=== PATIENT | male | born 1985 | race Caucasian/White ===

== ENCOUNTER 2018-05-07 17:37 | Emergency (ER) | payer OTHER ==
[2018-05-07] MEDS ORDERED: Sodium Chloride 0.9% 1,000 ML IV ONE (17:56)
[2018-05-07] MEDS ORDERED: Ketorolac 30 MG/ML SDV IVPUSH ONE (17:56)
[2018-05-07] MEDS ORDERED: Tamsulosin 0.4 MG Cap.ER PO ONE (17:56)
[2018-05-07] MEDS ORDERED: Ondansetron 4 MG/2 ML SDV IVPUSH ONE (17:56)
[2018-05-07 18:41] LABS: CHLORIDE,CL 101 mmol/L (98-107); SODIUM,NA 136 mmol/L (136-148)
[2018-05-07] MEDS ORDERED: HYDROmorphone 1 MG/ML Syringe IVPUSH ONE (19:43)
--- NOTE | 2018-05-07 19:58 | EDM.PDOC ---
ED HPI GENERAL MEDICAL PROBLEM - General Chief Complaint: Flank Pain Stated Complaint: LEFT SIDE ABDOMINAL PAIN Time Seen by Provider: 05/07/18 17:54 - History of Present Illness INITIAL COMMENTS - FREE TEXT/NARRATIVE: HISTORY AND PHYSICAL: History of present illness: Patient 33-year-old white male with history of urolithiasis who is awaiting his urology follow-up presents with concern of left-sided flank pain similar to his recent diagnosis which she had multiple uroliths. He had no fever chills no vomiting no diarrhea no other complaints Review of systems: As per history of present illness and below otherwise all systems reviewed and negative. Past medical history: As per history of present illness and as reviewed below otherwise noncontributory. Surgical history: As per history of present illness and as reviewed below otherwise noncontributory. Social history: No reported history of drug or alcohol abuse. Family history: As per history of present illness and as reviewed below otherwise noncontributory. Physical exam: HEENT: Atraumatic, normocephalic, pupils reactive, negative for conjunctival pallor or scleral icterus, mucous membranes moist, throat clear, neck supple, nontender, trachea midline. Lungs: Clear to auscultation, breath sounds equal bilaterally, chest nontender. Heart: S1S2, regular, negative for clicks, rubs, or JVD. Abdomen: Soft, nondistended, nontender. Negative for masses or hepatosplenomegaly. Left-sided costovertebral tenderness. Pelvis: Stable nontender. Genitourinary: Deferred. Rectal: Deferred. Extremities: Atraumatic, negative for cords or calf pain. Neurovascular unremarkable. Neuro: Awake, alert, oriented. Cranial nerves II through XII unremarkable. Cerebellum unremarkable. Motor and sensory unremarkable throughout. Exam nonfocal. Diagnostics: CBC CMP UA urine culture and sensitivity CT abdomen and pelvis Therapeutics: Normal saline 1 L bolus and Toradol 30 mg IV Flomax 0.4 mg by mouth Dilaudid 1 mg IV Impression: #! left-sided urolithiasis Definitive disposition and diagnosis as appropriate pending reevaluation and review of above. left flank Pain Score (Numeric/FACES): 10 - Related Data Allergies Allergy/AdvReac Type Severity Reaction Status Date / Time Penicillins Allergy Rash Verified 05/07/18 17:50 Home Meds: Home Meds Dextroamphetamine/Amphetamine [Adderall 30 mg Tablet] 30 mg PO TID 05/07/18 [ History] lamoTRIgine [Lamictal] 100 mg PO BID 05/07/18 [History] Past Medical History Psychiatric History: Reports: Bipolar, Depression - Infectious Disease History Infectious Disease History: Reports: None - Past Surgical History Neurological Surgical History: Reports: Spinal Fusion, Other (See Below) Other Neurological Surgeries/Procedures: back surgery , foot surgery Social & Family History - Family History Family Medical History: Noncontributory - Tobacco Use Smoking Status *Q: Light Tobacco Smoker Years of Tobacco use: 20 Packs/Tins Daily: 1 - Recreational Drug Use Recreational Drug Use: No ED ROS GENERAL - Review of Systems Review Of Systems: ROS reveals no pertinent complaints other than HPI. ED EXAM, GENERAL - Physical Exam Exam: See Below (The dictation) Course - Vital Signs Last Recorded V/S: Last Vital Signs Temp 36.3 C 05/07/18 19:00 Pulse 91 05/07/18 19:00 Resp 18 05/07/18 19:00 BP 138/88 05/07/18 19:00 Pulse Ox 98 05/07/18 19:00 - Orders/Labs/Meds Orders: Active Orders 24 hr Category Date Time Status Abdomen Pelvis wo Cont [CT] Stat Exams 05/07/18 17:56 Taken CULTURE URINE [RM] Stat Lab 05/07/18 18:25 Received UA W/MICROSCOPIC [URIN] Stat Lab 05/07/18 18:25 Ordered Labs: Laboratory Tests 05/07/18 05/07/18 05/07/18 Range/Units 18:08 18:08 18:25 WBC 10.40 (4.0-11.0) K/uL RBC 4.98 (4.50-5.90) M/uL Hgb 15.4 (13.0-17.0) g/dL Hct 44.2 (38.0-50.0) % MCV 88.8 (80.0-98.0) fL MCH 30.9 (27.0-32.0) pg MCHC 34.8 (31.0-37.0) g/dL RDW Std Deviation 42.7 (28.0-62.0) fl RDW Coeff of Maci 13 (11.0-15.0) % Plt Count 265 (150-400) K/uL MPV 9.10 (7.40-12.00) fL Neut % (Auto) 67.3 (48.0-80.0) % Lymph % (Auto) 18.6 (16.0-40.0) % [place] % (Auto) 8.3 (0.0-15.0) % Eos % (Auto) 5.3 (0.0-7.0) % Baso % (Auto) 0.5 (0.0-1.5) % Neut # (Auto) 7.0 H (1.4-5.7) K/uL Lymph # (Auto) 1.9 (0.6-2.4) K/uL [place] # (Auto) 0.9 H (0.0-0.8) K/uL Eos # (Auto) 0.6 (0.0-0.7) K/uL Baso # (Auto) 0.1 (0.0-0.1) K/uL Nucleated RBC % 0.0 /100WBC Nucleated RBCs # 0 K/uL Sodium 136 (136-148) mmol/L Potassium 3.9 (3.5-5.1) mmol/L Chloride 101 (98-107) mmol/L Carbon Dioxide 27.1 (21.0-32.0) mmol/L BUN 23 H (7.0-18.0) mg/dL Creatinine 1.2 (0.8-1.3) mg/dL Est Cr Clr Drug Dosing 81.09 mL/min Estimated GFR (MDRD) > 60.0 ml/min Glucose 102 (74-106) mg/dL Calcium 9.2 (8.5-10.1) mg/dL Total Bilirubin 0.6 (0.2-1.0) mg/dL AST 24 (15-37) IU/L ALT 52 (14-63) IU/L Alkaline Phosphatase 98 (46-116) U/L Total Protein 6.9 (6.4-8.2) g/dL Albumin 4.1 (3.4-5.0) g/dL Globulin 2.8 (2.0-3.5) g/dL Albumin/Globulin Ratio 1.5 (1.3-2.8) Urine Color YELLOW Urine Appearance CLEAR Urine pH 6.0 (5.0-8.0) Ur Specific [place] 1.010 (1.001-1.035) Urine Protein NEGATIVE (NEGATIVE) mg/dL Urine Glucose (UA) NEGATIVE (NEGATIVE) mg/dL Urine Ketones NEGATIVE (NEGATIVE) mg/dL Urine Occult Blood MODERATE (NEGATIVE) Urine Nitrite NEGATIVE (NEGATIVE) Urine Bilirubin NEGATIVE (NEGATIVE) Urine Urobilinogen 0.2 (<2.0) EU/dL Ur Leukocyte Esterase NEGATIVE (NEGATIVE) Urine RBC 0-1 (0-2/HPF) Urine WBC 0-1 (0-5/HPF) Ur Epithelial Cells RARE (NONE-FEW) Urine Bacteria RARE (NEGATIVE) Meds: Medications Discontinued Medications Generic Name Dose Route Start Last Admin Trade Name Freq PRN Reason Stop Dose Admin Hydromorphone HCl 1 mg 05/07/18 19:43 05/07/18 19:47 Dilaudid IVPUSH 05/07/18 19:44 1 mg ONETIME ONE Administration Sodium Chloride 1,000 mls @ 999 mls/hr 05/07/18 17:56 05/07/18 18:10 Normal Saline IV 05/07/18 18:56 999 mls/hr STAT ONE Administration Ketorolac Tromethamine 30 mg 05/07/18 17:56 05/07/18 18:11 Toradol IVPUSH 05/07/18 17:57 30 mg ONETIME ONE Administration Ondansetron HCl 4 mg 05/07/18 17:56 05/07/18 18:11 Zofran IVPUSH 05/07/18 17:57 4 mg ONETIME ONE Administration Tamsulosin HCl 0.4 mg 05/07/18 17:56 05/07/18 18:11 Flomax PO 05/07/18 17:57 0.4 mg ONETIME ONE Administration Departure - Departure Time of Disposition: 19:56 Disposition: Home, Self-Care 01 Condition: Good Clinical Impression: Urolithiasis - Discharge Information Referrals: PCP,None [Primary Care Provider] - Additional Instructions: The following information is given to patients seen in the emergency department who are being discharged to home. This information is to outline your options for follow-up care. We provide all patients seen in our emergency department with a follow-up referral. The need for follow-up, as well as the timing and circumstances, are variable depending upon the specifics of your emergency department visit. If you don't have a primary care physician on staff, we will provide you with a referral. We always advise you to contact your personal physician following an emergency department visit to inform them of the circumstance of the visit and for follow-up with them and/or the need for any referrals to a consulting specialist. The emergency department will also refer you to a specialist when appropriate. This referral assures that you have the opportunity for followup care with a specialist. All of these measure are taken in an effort to provide you with optimal care, which includes your followup. Under all circumstances we always encourage you to contact your private physician who remains a resource for coordinating your care. When calling for followup care, please make the office aware that this follow-up is from your recent emergency room visit. If for any reason you are refused follow-up, please contact the [facility] emergency department at and asked to speak to the emergency department charge nurse. Specialty Care - Urology [address] [place] [id number] Hydrocodone Flomax as prescribed follow-up urology as discussed return as needed as discussed - My Orders Last 24 Hours: My Active Orders 05/07/18 17:56 Abdomen Pelvis wo Cont [CT] Stat 05/07/18 18:25 CULTURE URINE [RM] Stat UA W/MICROSCOPIC [URIN] Stat - Assessment/Plan Last 24 Hours: My Active Orders 05/07/18 17:56 Abdomen Pelvis wo Cont [CT] Stat 05/07/18 18:25 CULTURE URINE [RM] Stat UA W/MICROSCOPIC [URIN] Stat
--- NOTE | 2018-05-08 09:21 | CT ---
EXAM DATE: 05/07/18 PATIENT'S AGE: 33 Patient: MYLES RAY Facility: [place], [place] Site . Site : 1985 Study: CT Abdomen/Pelvis [id number] 6:57:07 PM Ordering Physician: Doctor Galarza Final Report: INDICATION: Left flank pain. History of nephrolithiasis. TECHNIQUE: CT abdomen and pelvis without contrast. COMPARISON: None. FINDINGS: Lower chest: Unremarkable. Liver: Normal in size and attenuation. No masses. Gallbladder and bile ducts: No stones or inflammation. No biliary dilatation. Pancreas: Unremarkable. No mass or inflammation. Spleen: Normal in size. No masses. Adrenal glands: Normal in size. No nodules. Kidneys: There is a 3 mm stone in the mid left ureter causing moderate hydronephrosis. A 2nd tiny stone is in the lower pole of the left kidney. Bilateral parapelvic cysts are suspected. GI tract: Unremarkable. Normal in caliber. No sign of mass or inflammation. Normal appendix. Vasculature: Unremarkable. Lymph nodes: No lymphadenopathy. Abdominal wall/Omentum/Peritoneum: Unremarkable. No sign of mass or infiltration. No free air or significant free fluid. Pelvis: Unremarkable. No pelvic masses. Bones: There is posterior hardware fusion at L4-5. Otherwise unremarkable. IMPRESSION: 3 mm stone in the mid left ureter is causing moderate hydronephrosis. A 2nd tiny stone remains in the left kidney. No other significant finding. Please note that all CT scans at this facility use dose modulation, iterative reconstruction, and/or weight-based dosing when appropriate to reduce radiation dose to as low as reasonably achievable. Dictated by John Shin MD @ May 07 2018 7:22PM (Electronic Signature) Report Signed by Proxy. [facility]ONX HOSPITALManuel
== END 2018-05-07 20:18 | disposition home or self-care (01) ==
LOC: MW.ED 17:37
DX: N20.9 Urinary calculus, unspecified (principal); F32.9 Major depressive disorder, single episode, unspecified; F17.210 Nicotine dependence, cigarettes, uncomplicated; Z88.0 Allergy status to penicillin; Z79.899 Other long term (current) drug therapy
CPT/HCPCS: 36415; 74176; 80053; 81001; 85025; 87086; 96361; 96374; 96375; 99284; A9270; J1170; J1885; J2405; J7040

== ENCOUNTER 2019-01-19 16:41 | Emergency (ER) | payer OTHER ==
[2019-01-19] MEDS ORDERED: Albuterol/Ipratropium 3.0-0.5 MG/3 ML Neb Soln NEB ONE (17:09)
[2019-01-19] MEDS ORDERED: methylPREDNISolone Sodium Succinate 125 MG/2 ML SDV IM ONE (17:51)
--- NOTE | 2019-01-19 17:52 | EDM.PDOC ---
ED HPI GENERAL MEDICAL PROBLEM - General Chief Complaint: ENT Problem Stated Complaint: COUCHING UP BLOOD Time Seen by Provider: 01/19/19 17:51 Source of Information: Reports: Patient - History of Present Illness INITIAL COMMENTS - FREE TEXT/NARRATIVE: HISTORY AND PHYSICAL: History of present illness: [Patient presents with cough for a week increasing in severity coughing to lightheaded see spots nearly vomits has pain shortness breath headache dizziness palpitation no bowel or urine symptoms patient is concerned about some blood-tinged sputum is brought up with severe coughing today ] Review of systems: As per history of present illness and below otherwise all systems reviewed and negative. Past medical history: As per history of present illness and as reviewed below otherwise noncontributory. Surgical history: As per history of present illness and as reviewed below otherwise noncontributory. Social history: No reported history of drug or alcohol abuse. Family history: As per history of present illness and as reviewed below otherwise noncontributory. Physical exam: HEENT: Atraumatic, normocephalic, pupils reactive, negative for conjunctival pallor or scleral icterus, mucous membranes moist, throat clear, neck supple, nontender, trachea midline. Lungs: Clear to auscultation, breath sounds equal bilaterally, chest nontender. Heart: S1S2, regular, negative for clicks, rubs, or JVD. Abdomen: Soft, nondistended, nontender. Negative for masses or hepatosplenomegaly. Negative for costovertebral tenderness. Pelvis: Stable nontender. Genitourinary: Deferred. Rectal: Deferred. Extremities: Atraumatic, negative for cords or calf pain. Neurovascular unremarkable. Neuro: Awake, alert, oriented. Cranial nerves II through XII unremarkable. Cerebellum unremarkable. Motor and sensory unremarkable throughout. Exam nonfocal. Diagnostics: []Influenza Chest 1 view , [employer]: [] DuoNeb Z-Raymond Medrol Dosepak HFA Impression: [ acute bronchitis] Definitive disposition and diagnosis as appropriate pending reevaluation and review of above. Chest Pain Score (Numeric/FACES): 10 - Related Data Allergies Allergy/AdvReac Type Severity Reaction Status Date / Time Penicillins Allergy Rash Verified 01/19/19 17:06 Home Meds: Home Meds Dextroamphetamine/Amphetamine [Adderall 30 mg Tablet] 30 mg PO TID 05/07/18 [ History] lamoTRIgine [Lamictal] 100 mg PO BID 05/07/18 [History] Past Medical History HEENT History: Reports: None Cardiovascular History: Reports: None Respiratory History: Reports: None Gastrointestinal History: Reports: None Genitourinary History: Reports: None Neurological History: Reports: None Psychiatric History: Reports: Bipolar, Depression Endocrine/Metabolic History: Reports: None Hematologic History: Reports: None Immunologic History: Reports: None Oncologic (Cancer) History: Reports: None Dermatologic History: Reports: None - Infectious Disease History Infectious Disease History: Reports: None - Past Surgical History Head Surgeries/Procedures: Reports: None Neurological Surgical History: Reports: Spinal Fusion, Other (See Below) Other Neurological Surgeries/Procedures: back surgery , foot surgery Social & Family History - Family History Family Medical History: Noncontributory - Tobacco Use Years of Tobacco use: 17 Packs/Tins Daily: 1 - Caffeine Use Caffeine Use: Reports: Coffee - Recreational Drug Use Recreational Drug Use: No ED ROS GENERAL - Review of Systems Review Of Systems: See Below ED EXAM, GENERAL - Physical Exam Exam: See Below Course - Vital Signs Last Recorded V/S: Last Vital Signs Temp 98.2 F 01/19/19 16:49 Pulse 86 01/19/19 17:58 Resp 18 01/19/19 17:58 BP 139/87 01/19/19 17:58 Pulse Ox 97 01/19/19 17:58 - Orders/Labs/Meds Orders: Active Orders 24 hr Category Date Time Status RT Aerosol Therapy [RC] ASDIRECTED Care 01/19/19 17:09 Active QUANTIFERON TB PLUS [REF] Stat Lab 01/19/19 17:54 Received Meds: Medications Discontinued Medications Generic Name Dose Route Start Last Admin Trade Name Freq PRN Reason Stop Dose Admin Albuterol/Ipratropium 3 ml 01/19/19 17:09 01/19/19 17:17 Duoneb 3.0-0.5 Mg/3 Ml NEB 01/19/19 17:10 3 ml ONETIME ONE Administration Methylprednisolone Sodium Succinate 125 mg 01/19/19 17:51 Solu-Medrol IM 01/19/19 17:52 ONETIME ONE Departure - Departure Time of Disposition: 18:12 Disposition: Home, Self-Care 01 Condition: Good Clinical Impression: Acute bronchitis - Discharge Information Referrals: PCP,Unknown [Primary Care Provider] - Forms: ED Department Discharge Additional Instructions: The following information is given to patients seen in the emergency department who are being discharged to home. This information is to outline your options for follow-up care. We provide all patients seen in our emergency department with a follow-up referral. The need for follow-up, as well as the timing and circumstances, are variable depending upon the specifics of your emergency department visit. If you don't have a primary care physician on staff, we will provide you with a referral. We always advise you to contact your personal physician following an emergency department visit to inform them of the circumstance of the visit and for follow-up with them and/or the need for any referrals to a consulting specialist. The emergency department will also refer you to a specialist when appropriate. This referral assures that you have the opportunity for follow-up care with a specialist. All of these measure are taken in an effort to provide you with optimal care, which includes your follow-up. Under all circumstances we always encourage you to contact your private physician who remains a resource for coordinating your care. When calling for follow-up care, please make the office aware that this follow-up is from your recent emergency room visit. If for any reason you are refused follow-up, please contact the [facility] emergency department at and asked to speak to the emergency department charge nurse. - My Orders Last 24 Hours: My Active Orders 01/19/19 17:09 RT Aerosol Therapy [RC] ASDIRECTED 01/19/19 17:54 QUANTIFERON TB PLUS [REF] Stat - Assessment/Plan Last 24 Hours: My Active Orders 01/19/19 17:09 RT Aerosol Therapy [RC] ASDIRECTED 01/19/19 17:54 QUANTIFERON TB PLUS [REF] Stat
--- NOTE | 2019-01-19 18:10 | CR ---
INDICATION: coughed up blood, sob TECHNIQUE: Chest 2 views. COMPARISON: None. FINDINGS: Cardiovascular and mediastinum: Heart size and vasculature are normal in caliber and appearance. Mediastinum is within normal limits. Lungs and pleural spaces: Lungs are clear. No sign of infiltrate or mass. No sign of pleural effusion. No pneumothorax. Bones and soft tissues: No significant findings. IMPRESSION: Unremarkable chest. Dictated by: Wild Escudero MD @ 01/19/2019 18:09:09 (Electronically Signed)
== END 2019-01-19 18:31 | disposition home or self-care (01) ==
LOC: MW.ED 16:41
DX: J20.9 Acute bronchitis, unspecified (principal); Z88.0 Allergy status to penicillin; Z98.1 Arthrodesis status
CPT/HCPCS: 71046; 86480; 87804; 94640; 96372; 99284; J2930; 99282; J7620-GY

== ENCOUNTER 2021-12-10 20:03 | Emergency (ER) | payer BC ==
--- NOTE | 2021-12-10 20:17 | EDM.PDOC ---
ED HPI GENERAL MEDICAL PROBLEM - General Chief Complaint: Respiratory Problem Stated Complaint: POSSIBLE PNEUMONIA Time Seen by Provider: 12/10/21 20:11 Source of Information: Reports: Patient History Limitations: Reports: No Limitations - History of Present Illness INITIAL COMMENTS - FREE TEXT/NARRATIVE: HISTORY AND PHYSICAL: History of present illness: Patient is a 36-year-old male who presents to the emergency room with complaints of cough, shortness of breath and body aches over the past 1 to 2 weeks. Patient denies any fever, chills, headache, change in vision, syncope or near syncope. Denies any chest pain, back pain, shortness of breath or cough. Denies any abdominal pain, nausea, vomiting, diarrhea, constipation or dysuria. Has not noted any blood in urine or stool. Patient has been eating and drinking appropriately. No recent travel or sick contacts. Review of systems: As per history of present illness and below otherwise all systems reviewed and negative. Past medical history: As per history of present illness and as reviewed below otherwise noncontributory. Surgical history: As per history of present illness and as reviewed below otherwise nonco ntributory. Social history: See social history for further information Family history: As per history of present illness and as reviewed below otherwise noncontributory. Physical exam: General: Well developed and well nourished 36-year-old male. Alert and orientated x 3. Nontoxic in appearance and in no acute distress. Vital signs are stable and have been reviewed by me. Nursing notes were reviewed. HEENT: Atraumatic, normocephalic, pupils equal and reactive bilaterally, negative for conjunctival pallor or scleral icterus, mucous membranes moist, TMs normal bilaterally, throat clear, neck supple, nontender, trachea midline. No drooling or trismus noted. No meningeal signs. No hot potato voice noted. Lungs: Clear to auscultation bilaterally. No wheezes, rales, or rhonchi. Chest nontender. Normal work of breathing, no accessory muscles used. Heart: S1S2, regular rate and rhythm without overt murmur, gallops, or rubs. No JVD. No peripheral edema Abdomen: Soft, nondistended, nontender. Normoactive bowel sounds. Negative for masses or costovertebral tenderness. Skin: Intact, warm, dry. No lesions or rashes noted. Hematologic: No petechiae or purpra. Mucosa appropriate color and normal nail bed color and refill. Extremities: Atraumatic, moves all extremities per self without difficulty or deficits, negative for cords or calf pain. Neurovascular unremarkable. Neuro: Awake, alert, oriented. Cranial nerves II through XII unremarkable. Cerebellum unremarkable. Motor and sensory unremarkable throughout. Exam nonfocal. Psychiatric: Mood and affect are appropriate. Normal thought process. Answering questions appropriately. Please note that the patient was seen and evaluated during the 2019 SARS-CoV-2 novel coronavirus pandemic period. Community viral transmission is ongoing at time of this encounter and the emergency department is operating under pandemic response procedures. Medical Decision Making: Patient is a 36-year-old male who has upper respiratory symptoms. Patient does appear viral in nature. We will do a COVID-19/influenza and chest x-ray. Chest x-ray is unremarkable. Negative influenza, positive COVID-19. Vital signs are stable. Will prescribe Cheratussin for nighttime relief. I have talked with the patient about today's findings, in addition to providing specific details for plan of care. Reassessment at the time of disposition demonstrates that the patient is in no acute distress. The patient is stable for discharge, counseling was provided and we discussed in great detail signs and symptoms that would prompt them to return to the Emergency Department. Medication, follow up and supportive care measures were reviewed and discussed. Voices understanding and is agreeable to plan of care. Denies any further questions or concerns at this time. Diagnostics: COVID-19/influenza, chest x-ray Therapeutics: Cheratussin Prescription: Cheratussin Impression: COVID-19 Plan: 1. You were evaluated today on an emergent basis. Your chest x-ray shows no evidence of pneumonia or infection. Your COVID-19 screening is positive. That means you do have the coronavirus and you are considered contagious. Your vital signs and oxygen saturation are well enough that you were able to monitor your symptoms at home. Continue to monitor for trouble breathing, new confusion or inability to arouse, bluish lips or face or any of the other symptoms we discussed -if this occurs please return to the emergency room immediately. 2. Please self quarantine until cleared by [facility]. Inform any persons that you have been in contact with since you started becoming symptomatic that you have tested positive; they should be made aware and take the appropriate steps as needed. 3. You can take NyQuil during the evening to help get a restful night sleep. May alternate Tylenol and ibuprofen as needed for pain and fever management. 4. The [facility] department will be calling you and following up with you. The [place] [facility] Hotline phone number , They are open Saturday - Saturday 7am - 7pm. Follow up with your primary care provider for re-evaluation as directed. Definitive disposition and diagnosis as appropriate pending reevaluation and review of above. Chest Pain Score (Numeric/FACES): 4 - Related Data Allergies Allergy/AdvReac Type Severity Reaction Status Date / Time Penicillins Allergy Rash Verified 12/10/21 20:35 Home Meds: Home Meds Dextroamphetamine/Amphetamine [Adderall 30 mg Tablet] 30 mg PO TID 05/07/18 [History] lamoTRIgine [Lamictal] 100 mg PO BID 05/07/18 [History] Past Medical History HEENT History: Reports: None Cardiovascular History: Reports: None Respiratory History: Reports: None Gastrointestinal History: Reports: None Genitourinary History: Reports: None Neurological History: Reports: None Psychiatric History: Reports: Bipolar, Depression Endocrine/Metabolic History: Reports: None Hematologic History: Reports: None Immunologic History: Reports: None Oncologic (Cancer) History: Reports: None Dermatologic History: Reports: None - Infectious Disease History Infectious Disease History: Reports: None - Past Surgical History Head Surgeries/Procedures: Reports: None Neurological Surgical History: Reports: Spinal Fusion, Other (See Below) Other Neurological Surgeries/Procedures: back surgery , foot surgery Social & Family History - Family History Family Medical History: No Pertinent Family History - Caffeine Use Caffeine Use: Reports: Coffee ED ROS GENERAL - Review of Systems Review Of Systems: Comprehensive ROS is negative, except as noted in HPI. ED EXAM, GENERAL - Physical Exam Exam: See Below (See dictation) Course - Vital Signs Last Recorded V/S: Last Vital Signs Temp 98.9 F 12/10/21 20:28 Pulse 112 H 12/10/21 20:28 Resp 20 12/10/21 20:28 BP 143/70 H 12/10/21 20:28 Pulse Ox 97 12/10/21 20:28 - Orders/Labs/Meds Orders: Active Orders 24 hr Category Date Time Status EKG Documentation Completion [RC] STAT Care 12/10/21 20:29 Active Labs: Laboratory Tests 12/10/21 Range/Units 20:30 Influenza Type A RNA NEGATIVE (NEGATIVE) Influenza Type B RNA NEGATIVE (NEGATIVE) SARS-CoV-2 RNA (MELLY) POSITIVE H (NEGATIVE) Meds: Medications Discontinued Medications Generic Name Dose Route Start Last Admin Trade Name Kelly PRN Reason Stop Dose Admin Guaifenesin/Codeine Phosphate 10 ml 12/10/21 20:35 12/10/21 20:59 Codeine/Guaifenesin 10-100 Mg/5 Ml Syrup 5 Ml Cup PO 12/10/21 20:36 10 ml ONETIME ONE Administration Departure - Departure Time of Disposition: 21:18 Disposition: Home, Self-Care 01 Clinical Impression: COVID-19 - Discharge Information Instructions: 10 Things You Can Do to Manage Your COVID-19 Symptoms at Home - [facility] (06/16/2021) Referrals: PCP,Not In Area [Primary Care Provider] - Forms: ED Department Discharge Additional Instructions: The following information is given to patients seen in the emergency department who are being discharged to home. This information is to outline your options for follow-up care. We provide all patients seen in our emergency department with a follow-up referral. The need for follow-up, as well as the timing and circumstances, are variable depending upon the specifics of your emergency department visit. If you don't have a primary care physician on staff, we will provide you with a referral. We always advise you to contact your personal physician following an emergency department visit to inform them of the circumstance of the visit and for follow-up with them and/or the need for any referrals to a consulting specialist. The emergency department will also refer you to a specialist when appropriate. This referral assures that you have the opportunity for follow-up care with a specialist. All of these measure are taken in an effort to provide you with optimal care, which includes your follow-up. Under all circumstances we always encourage you to contact your private physician who remains a resource for coordinating your care. When calling for follow-up care, please make the office aware that this follow-up is from your recent emergency room visit. If for any reason you are refused follow-up, please contact the [facility] Emergency Department at and asked to speak to the emergency department charge nurse. [facility] [address] [place] [address] [facility] [address] [place] [address] Thank you for choosing the [facility] emergency department in [place] for your medical needs today. It was a pleasure caring for you. Today you were seen in the emergency department for COVID 19 1. You were evaluated today on an emergent basis. Your chest x-ray shows no evidence of pneumonia or infection. Your COVID-19 screening is positive. That means you do have the coronavirus and you are considered contagious. Your vital signs and oxygen saturation are well enough that you were able to monitor your symptoms at home. Continue to monitor for trouble breathing, new confusion or inability to arouse, bluish lips or face or any of the other symptoms we discussed -if this occurs please return to the emergency room immediately. 2. Please self quarantine until cleared by [facility] Department. Inform any persons that you have been in contact with since you started becoming symptomatic that you have tested positive; they should be made aware and take the appropriate steps as needed. 3. You can take NyQuil during the evening to help get a restful night sleep. May alternate Tylenol and ibuprofen as needed for pain and fever management. 4. The [facility] department will be calling you and following up with you. The [place] COVID 19 Hotline phone number , They are open Saturday - Saturday 7am - 7pm. Follow up with your primary care provider for re-evaluation as directed. Sepsis Event Note (ED) - Focused Exam Vital Signs: Vital Signs Temp Pulse Resp BP Pulse Ox 12/10/21 20:28 98.9 F 112 H 20 143/70 H 97 - My Orders Last 24 Hours: My Active Orders 12/10/21 20:29 EKG Documentation Completion [RC] STAT - Assessment/Plan Last 24 Hours: My Active Orders 12/10/21 20:29 EKG Documentation Completion [RC] STAT
[2021-12-10] MEDS ORDERED: Codeine/guaiFENesin 10-100 MG/5 ML Syrup 5 ML Cup PO ONE (20:35)
--- NOTE | 2021-12-10 20:56 | CR ---
Indication: Pain. Shortness of breath. Technique: AP portable view of the chest. Comparison: January 19, 2019. Findings: The heart is normal in size. The lungs are clear. No infiltrate, pleural effusion, or pneumothorax is identified. Impression: No acute cardiopulmonary process Dictated by Martha Hassan MD @ 12/10/2021 8:55:03 PM (Electronically Signed)
[2021-12-10 21:12] LABS: CORONAVIRUS COVID-19 NAA POSITIVE (NEGATIVE); INFLUENZA A NAA NEGATIVE (NEGATIVE); INFLUENZA B NAA NEGATIVE (NEGATIVE)
--- NOTE | 2021-12-10 21:13 | PCM.EKG ---
#1 Interpretation EKG Date: 12/10/21 Time: 21:05 Rhythm: NSR Rate (Beats/Min): 111 [place]: Normal P-Wave: Present QRS: Normal ST-T: Normal QT: Normal DE/PQ Interval: 110 Comparison: NA - No Prior EKG EKG Interpretation Comments: sinus tach, no ischemic changes
== END 2021-12-10 21:27 | disposition home or self-care (01) ==
LOC: MW.ED 20:03
DX: U07.1 COVID-19 (principal); Z88.0 Allergy status to penicillin
CPT/HCPCS: 0240U; 71045; 93005; 99284; A9270

== ENCOUNTER 2022-04-25 18:24 | Emergency (ER) | payer OTHER, BC ==
[2022-04-25] MEDS ORDERED: Acetaminophen/HYDROcodone 325-5 MG Tab PO ONE (19:22)
== END 2022-04-25 20:22 | disposition home or self-care (01) ==
LOC: MW.ED 18:24
DX: S93.492A Sprain of other ligament of left ankle, initial encounter (principal); Z79.899 Other long term (current) drug therapy; Z79.82 Long term (current) use of aspirin; Z88.0 Allergy status to penicillin; X50.1XXA Overexertion from prolonged static or awkward postures, initial encounter; Y99.0 Civilian activity done for income or pay
CPT/HCPCS: 73610; 99283; A9270